=== PATIENT | male | born 1945 | race Caucasian/White ===

== ENCOUNTER 2025-07-01 12:01 | Day surgery (SDC) | payer OTHER, MEDICARE ==
[~2025-07-01] VITALS: Ht 188 cm; Wt 108.9 kg
[2025-07-01] VITALS (9 sets, daily range): BP systolic 112–138; BP diastolic 64–80; PULSE 78–84; RESP 10–16; TEMP 98; O2SAT 94–97
[~2025-07-01 12:01] MED LIST: EMPA25TA PO; FURO-150 PO; LOSA25TA41 PO; METF-1203 PO; PRIM50TA5 PO; SEMA1PEN3 SUBCUT
[2025-07-01] MEDS: ceFAZolin 2gm/dext,iso 50mL 50 ML IV ONE (12:35)
[2025-07-01] MEDS: ringers solution, lacted 1,000 ML IV SCH (12:35)
--- NOTE | 2025-07-01 13:19 | ELECTROCARDIOGRAPH REPORT ---
[facility] Test Date: 2025-07-01 Test Time: 13:17:24 Pat Name: ASHISH DOWNS Department: [facility] Patient ID: [facility]-[id number] Room: Gender: M Follow Up Specialist: low : 1945 Requested By: MAHAMED VANN Order Number: [id number] Reading MD: Dr. RAMIRO Ryan Measurements Intervals [place] Rate: 82 P: 10 NH: 186 QRS: -57 QRSD: 141 T: 31 QT: 411 QTc: 480 Interpretive Statements Sinus rhythm Probable left atrial enlargement Left bundle branch block Electronically Signed On 07-01-2025 16:49:[address] RAMIRO Ryan Please click the below link to view image of tracing.
[2025-07-01 13:26] LABS: MEAN PLATELET VOLUME 8.2 FL (7.4-10.4); PRE OP HEMATOCRIT 42.3 % (42.0-52.0); PRE OP HEMOGLOBIN 13.5 g/dL (14.0-17.9); PRE OP PLATELET COUNT 290 X10'3 (140-440); PRE OP WHITE BLOOD COUNT 6.4 10'3 (4.8-10.8); RED CELL DISTRIBUTION WIDTH 15.1 % (11.5-14.5)
[2025-07-01 13:33] LABS: CREATININE 0.63 MG/DL (0.60-1.10); PRE OP ALT 19 U/L (30-65); PRE OP ANION GAP 11 (8-16); PRE OP AST 15 U/L (10-37); PRE OP BILIRUB, TOTAL 0.4 MG/DL (0.0-1.0); PRE OP GLUCOSE 133 MG/DL (70-104); PRE OP POTASSIUM 4.0 MMOL/L (3.4-5.1); PRE OP SODIUM 141 MMOL/L (135-145); TOTAL CARBON DIOXIDE 25.6 MMOL/L (24-32); eCRCL 111 ML/MIN; eGFR > 90 ML/MIN
[2025-07-01] MEDS ORDERED: ondansetron/PF 4mg/2ml inj IV PRN (14:30)
[2025-07-01] MEDS ORDERED: labetalol 20mg/4ml (5mg/ml) syringe IV PRN (14:30)
[2025-07-01] MEDS ORDERED: ringers solution, lacted 1,000 ML IV SCH (14:30)
[2025-07-01] MEDS ORDERED: fentaNYL/PF 50MCG/1 ML 2ML syringe IV PRN ×2 (14:30)
[2025-07-01] MEDS ORDERED: hydrALAZINE 20mg/ml inj. IV PRN (14:30)
[2025-07-01] MEDS ORDERED: morphine 4 MG/ML inj SYRINge IV PRN (14:30)
[2025-07-01] MEDS ORDERED: BUPIVAcaine 2.5mg/ml inj 50ml vial (contains preservative) ONE (14:56)
[2025-07-01] MEDS ORDERED: bacitracin 15gm ointment TP ONE (14:56)
[2025-07-01] MEDS ORDERED: ondansetron/PF 4mg/2ml inj ONE (15:03)
[2025-07-01] MEDS ORDERED: LIDOcaine 2% (20mg/ml) 5ml vial ONE (15:03)
[2025-07-01] MEDS ORDERED: propofol inj 20 ML IV ONE (15:03)
[2025-07-01] MEDS ORDERED: PHENYLephrine 10mg/ml 5ml injection IV ONE (15:50)
[2025-07-01] MEDS ORDERED: fentaNYL/PF 50MCG/1 ML 2ML syringe ONE (15:59)
[2025-07-01] MEDS ORDERED: vancomycin 1,000mg inj ONE (16:14)
--- NOTE | 2025-07-01 17:54 | OPERATIVE REPORT ---
DATE OF SURGERY: 07/01/2025 DICTATING PHYSICIAN: MAHAMED GALLEGOS DPM PREOPERATIVE DIAGNOSES: Right foot chronic infection, right foot pain, right foot infection. POSTOPERATIVE DIAGNOSES: Right foot chronic infection, right foot pain, right foot infection. PROCEDURES: Incision and drainage and complex wound closure of the right foot. SURGEON: Mahamed Gallegos DPM FERTILIZER PROCESSING SUPERVISOR: None. ANESTHESIA: Dr. Molina with general anesthesia. HEMOSTASIS: None. COMPLICATIONS: None. SPECIMENS: None. ESTIMATED BLOOD LOSS: Less than 25 mL HARDWARE: None. INDICATIONS: The patient presented to my office with the above-listed complaints. The patient had a previous transmetatarsal amputation and unfortunately was dealing with a chronic wound. We had tried multiple times to close this wound and get it closed conservatively and with wound care, but unfortunately, it has failed, so therefore, I offered him more aggressive options, and this is the route that he elected to undergo. No guarantees were given. The clinical and radiographic data correlated with above diagnosis. I did discuss this with his wound care doctor as well and this was our plan moving forward. DESCRIPTION OF PROCEDURE: The patient was brought to the operating room and placed on the operating table in the supine position. The patient was then induced under general anesthesia and the foot and ankle prepped and draped in the usual aseptic fashion. Calf tourniquet was applied, but never inflated. Incision and drainage with complex wound closure of the right foot: We then brought our attention to the dorsal aspect of the distal tuft of the remaining skin and transmetatarsal site. The patient had a central wound, so therefore, I identified the skin tension resting lines and I noted a 3:1 measurement for an elliptical excisional wound closure. I did excise this with a #15 blade and carefully dissected down to the level of the deep fascia. I made sure to excise all of the wound appropriately. So therefore, after I identified all of the irregular tissue, I then flushed with copious amounts of sterile normal saline. I made sure to undermine some of the tissue in order to achieve an advancement flap, which I did. I then undermined the skin and then flushed with copious amounts of sterile normal saline and then IrriSept solution. I then placed 1 g of vancomycin powder within the wound. After this, I then advanced the patient's skin flaps in order to achieve closure. I used a 2-0 and 3-0 nylon in order to close the incision 100% in its entirety. There was excellent closure. After this, I then dressed the incision with triple antibiotic followed by Adaptic, 4 x 4s, and Webril. The patient was then placed into a surgical shoe. The patient was placed into PACU with vital signs stable and vascular status intact to the operative foot. The patient was then instructed to be partially protected weightbearing to his heel for transfers. The patient was then readmitted to his SNF. The patient will follow up with me in the next couple of weeks. All of the patient's questions were answered today and he was in agreement with the treatment plan. The entire case was performed in a teaching fashion. MAHAMED GALLEGOS DPM TID: [id number] RECEIPT: [id number] MIRIAM/[id number]
== END 2025-07-01 18:47 | disposition home or self-care (01) ==
LOC: PAS 12:01
PROVIDERS: ATTEND Podiatrist Foot & Ankle Surgery
DX: L08.89 Other specified local infections of the skin and subcutaneous tissue (principal); I44.7 Left bundle-branch block, unspecified; I10 Essential (primary) hypertension; E11.42 Type 2 diabetes mellitus with diabetic polyneuropathy; Z87.891 Personal history of nicotine dependence; Z79.84 Long term (current) use of oral hypoglycemic drugs; Z79.899 Other long term (current) drug therapy; Z98.890 Other specified postprocedural states; Z88.8 Allergy status to other drugs, medicaments and biological substances
CPT/HCPCS: 13160; 36415; 80053; 85025; 93005; A6222; J2003; J2371; J2405; J2704; J3010; J3373; J3490; J7030; J7120; Z7506; Z7512; A4618; A6253; A6449; A7000